=== PATIENT | male | born 1955 | race Caucasian/White ===

== ENCOUNTER 2022-02-07 07:52 | Emergency (ER) | payer OTHER, SELFPAY ==
[2022-02-07 08:06] VITALS: BP 168/102; PULSE 108; RESP 18; TEMP 36.8; O2SAT 97
--- NOTE | 2022-02-07 08:50 | ED.NURSE ---
Left message with daughter to call back.
--- NOTE | 2022-02-07 09:18 | ED_ITS ---
HPI - Psych General Time Seen by Provider: 09:18 Date Seen: 02/07/22 Chief Complaint: Psychiatric Problem/Disorder Stated Complaint: Mental health Time Seen by Provider: 02/07/22 07:54 Source: patient, family and police Mode of arrival: ambulatory Limitations: no limitations History of Present Illness HPI Narrative: 66-year-old gentleman brought in by police in handcuffs as he was at his old family farm in [facility], attempted to start a truck in the barn. Residence of the house called the police, they brought him in for an assessment. Unclear why they brought him here as opposed to by passing [facility]. He tells me he has been drinking, but not for the last 24 hours. Also uses medical marijuana. Made some loose statements that Gus was the reason things are working out form. Absolutely denies to me that he is suicidal homicidal and I do not get that feeling from the police either. Was in [place], I believe for DWI violations, has been out now for the past 2 years and lives in [place]. Currently not employed and estranged from his family. Is not on any psychiatric and medications and not being treated for depression currently. We did call the daughter, she is trying to limit contact with him, but she tells me that he does tell her that he is suicidal in passing, no firm plans, but does continue to drink too much. Context: recent alcohol abuse and recent drug abuse Related Data Home Medications Medication Instructions Recorded Confirmed losartan 25 mg tablet 25 mg PO DAILY 02/07/22 02/07/22 Allergies Allergy/AdvReac Type Severity Reaction Status Date / Time No Known Drug Allergies Allergy Verified 02/07/22 08:06 Review of Systems Status of ROS: Reports: 10 or more systems reviewed and unremarkable except as noted in History and below [facility] Social History Smoking Status: Current some day smoker What tobacco products do you use: cigarettes Do you use any of these nicotine containing products: E-Cigarettes How often do you have a drink containing alcohol: 2-4 times a month How many standard drinks containing alcohol do you have on a typical day: 5 or 6 How often do you have six or more drinks on one occasion: Less than monthly AUDIT-C Alcohol total score: 5 Non-prescribed substance use: marijuana (any form) service: No Exam Narrative: Exam Narrative: Patient is sitting quietly in the room interactive with me his hearing aids are out but he is able to hear me quite well. Pupils are equal round react to light there is no scleral icterus redness TMs are normal no evidence of trauma over his head or neck region his neck is supple full range of motion, mouth opening normal. Thyroid normal midline palpable not enlarged, carotid upstrokes are equal cranial nerves 3-12 are normal, chest is clear heart sounds are normal no clicks murmurs or gallops abdomen is obese. There is no guarding no past splenomegaly moves all extremities independently well with absence of edema swelling there is no tremors noted. Fingers nose testing are normal. A tandem walking is normal for me in the room. Psychiatric he has no tangential thoughts normal speech pattern, no clear psychosis from my conversation with him. Understand that he was in the wrong going to the farm, and trying to get the vehicle, and he could of been charged with trespassing and theft. I will have the nurse talked to the daughter, and we will get some laboratory work which she is in agreement with. Const: Vital Signs, click to edit/add: Vital Signs - 24 hr 02/07/22 08:06 Temperature 98.3 F Pulse Rate [Right Pulse Oximeter] 108 H Respiratory Rate 18 Blood Pressure [Ri ght Upper Arm] 168/102 H Pulse Oximetry 97 Course Course Hospital Course: Patient has been cleared by Mental Health evaluation, they do not think he is holdable given current issue. There is a history of alcohol use with multiple DWI, patient is not interested in counseling or outpatient help here. He is not suicidal nor psychotic. I think it would be reasonable to discharge him home. Given the above, we offered him social work evaluation also but he declined. His laboratory work looks reasonable to this examiner, he is on medical marijuana. Finish up the banana bag and then discharge home. Vital Signs Vital signs: Initial Vital Signs Temperature 98.3 F 02/07/22 08:06 Temperature Source Temporal Artery Scan 02/07/22 08:06 Pulse Rate 108 H 02/07/22 08:06 Respiratory Rate 18 02/07/22 08:06 Blood Pressure 168/102 H 02/07/22 08:06 Blood Pressure Mean 124 02/07/22 08:06 Blood Pressure Position Sitting 02/07/22 08:06 Pulse Oximetry 97 07/26/22 08:06 Oxygen Delivery Method 02/07/22 08:06 Vital Signs Temperature 98.3 F 02/07/22 08:06 Pulse Rate 108 H 02/07/22 08:06 Respiratory Rate 18 02/07/22 08:06 Blood Pressure 168/102 H 02/07/22 08:06 Pulse Oximetry 97 02/07/22 08:06 Temperature 98.3 F 02/07/22 08:06 Pulse Rate 108 H 02/07/22 08:06 Respiratory Rate 18 02/07/22 08:06 Blood Pressure 168/102 H 02/07/22 08:06 Pulse Oximetry 97 02/07/22 08:06 MDM - Psych MDM Narrative Medical decision making narrative: Multiple differential diagnoses were considered for altered mental status. The life-threatening differential diagnosis considered include: Meningitis/encephalitis, bacteremia, subdural, cerebrovascular accident, SAH, and hypertensive encephalopathy. Other differential diagnosis included include medication effect, hypoxia, hypoglycemia, hypercalcemia, hypo or hypernatremia, hypothyroidism, hepatic encephalopathy, carbon monoxide poisoning, UTI, pneumonia, depression, seizure, as well as other etiologies. Differential Diagnosis Differential diagnosis: Likely acute psychosis, chronic schizophrenia, suicidal ideation, bipolar disorder, depression, drug-induced psychotic disorder and acute anxiety Medical Records Attestation: I reviewed the patient's medical records. Lab Data Attestation: I reviewed the patient's lab results. Labs: Lab Results 02/07/22 02/07/22 02/07/22 Range/Units 08:53 09:50 09:58 WBC 14.79 H (4.50-11.00) K/uL RBC 4.83 (4.30-5.90) m/uL Hgb 15.2 (13.5-17.5) gm/dL Hct 43.7 (37.0-53.0) % MCV 91 (80-100) fL MCH 32 (26-34) pg MCHC 35 (32-36) gm/dL RDW Coeff of Nilo 13.4 (11.5-15.5) % Plt Count 288 (140-440) K/uL Neut % (Auto) 81.0 H (42.0-72.0) % Lymph % (Auto) 8.7 L (20-44) % Mcduffie % (Auto) 7.9 (0.0-11.0) % Eos % (Auto) 1.5 (0.0-7.0) % Baso % (Auto) 0.5 (0.0-3.0) % Neut # (Auto) 12.00 H (1.7-7.0) K/uL Lymph # (Auto) 1.30 (0.90-2.90) K/uL Mcduffie # (Auto) 1.20 H (0.00-0.90) K/UL Eos # (Auto) 0.20 (0.00-0.50) K/uL Baso # (Auto) 0.10 (0.00-0.30) K/uL Abs Immat Gran (auto) 0.06 (0.00-0.30) K/uL INR 1.08 (0.91-1.10) APTT 33 (23-33) Seconds Sodium (135-149) mmol/L Potassium (3.6-5.1) mmol/L Chloride (96-114) mmol/L Carbon Dioxide (20-32) mmol/L BUN (7-30) mg/dL Creatinine (0.5-1.5) mg/dL Estimated GFR ml/min Glucose (60-115) mg/dL Calcium (8.4-10.6) mg/dL Magnesium (1.5-2.6) mg/dL Total Bilirubin (0.1-1.5) mg/dL Direct Bilirubin (0.0-0.5) mg/dL AST (12-35) U/L ALT (4-50) U/L Alkaline Phosphatase (40-150) U/L Total Protein (6.0-8.3) g/dL Albumin (3.3-5.0) g/dL Salicylates (1.0-10) mg/dL Urine Opiates Screen Negative (Negative) Ur Oxycodone Screen Negative (Negative) Urine Methadone Screen Negative (Negative) Ur Propoxyphene Screen Negative (Negative) Acetaminophen (10.0-30.0) ug/mL Ur Barbiturates Screen Negative (Negative) U Tricyclic Antidepress Negative (Negative) Ur Phencyclidine Scrn Negative (Negative) Ur Amphetamines Screen Negative (Negative) U Methamphetamines Scrn Negative (Negative) U Benzodiazepines Scrn Negative (Negative) Urine Cocaine Screen Negative (Negative) U Marijuana (THC) Screen POSITIVE A* (Negative) Ur Drug Screen Comment See Note Ethyl Alcohol (0.01-0.03) % 02/07/22 Range/Units 09:58 WBC (4.50-11.00) K/uL RBC (4.30-5.90) m/uL Hgb (13.5-17.5) gm/dL Hct (37.0-53.0) % MCV (80-100) fL MCH (26-34) pg MCHC (32-36) gm/dL RDW Coeff of Nilo (11.5-15.5) % Plt Count (140-440) K/uL Neut % (Auto) (42.0-72.0) % Lymph % (Auto) (20-44) % Mcduffie % (Auto) (0.0-11.0) % Eos % (Auto) (0.0-7.0) % Baso % (Auto) (0.0-3.0) % Neut # (Auto) (1.7-7.0) K/uL Lymph # (Auto) (0.90-2.90) K/uL Mcduffie # (Auto) (0.00-0.90) K/UL Eos # (Auto) (0.00-0.50) K/uL Baso # (Auto) (0.00-0.30) K/uL Abs Immat Gran (auto) (0.00-0.30) K/uL INR (0.91-1.10) APTT (23-33) Seconds Sodium 131 L (135-149) mmol/L Potassium 4.4 (3.6-5.1) mmol/L Chloride 100 (96-114) mmol/L Carbon Dioxide 22 (20-32) mmol/L BUN 6 L (7-30) mg/dL Creatinine 0.5 (0.5-1.5) mg/dL Estimated GFR 112 ml/min Glucose 113 (60-115) mg/dL Calcium 8.9 (8.4-10.6) mg/dL Magnesium 2.0 (1.5-2.6) mg/dL Total Bilirubin 1.4 (0.1-1.5) mg/dL Direct Bilirubin 0.2 (0.0-0.5) mg/dL AST 69 H (12-35) U/L ALT 49 (4-50) U/L Alkaline Phosphatase 81 (40-150) U/L Total Protein 7.6 (6.0-8.3) g/dL Albumin 4.6 (3.3-5.0) g/dL Salicylates < 1.0 L (1.0-10) mg/dL Urine Opiates Screen (Negative) Ur Oxycodone Screen (Negative) Urine Methadone Screen (Negative) Ur Propoxyphene Screen (Negative) Acetaminophen < 10.0 L (10.0-30.0) ug/mL Ur Barbiturates Screen (Negative) U Tricyclic Antidepress (Negative) Ur Phencyclidine Scrn (Negative) Ur Amphetamines Screen (Negative) U Methamphetamines Scrn (Negative) U Benzodiazepines Scrn (Negative) Urine Cocaine Screen (Negative) U Marijuana (THC) Screen (Negative) Ur Drug Screen Comment Ethyl Alcohol < 0.01 L (0.01-0.03) % ECG Data Attestation: I personally reviewed and interpreted this ECG as follows: ECG interpretation date: 02/07/22 ECG interpretation time: 10:56 Prior ECG tracings: not available for review Interpretation: Mild sinus tachycardia with a ventricular rate of 102, no acute ST wave changes Discharge Plan Discharge Clinical Impression: History of alcohol consumption, Poor mental health, 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 Prescriptions: No Action losartan 25 mg tablet 25 mg PO DAILY 0RF Follow Up/Referrals: Provider,Not a Local [Primary Care Provider] - Stand Alone Forms: [facility] Info Instructions
--- NOTE | 2022-02-07 09:25 | ED.NURSE ---
DEC initiated. Faxed facesheet.
--- NOTE | 2022-02-07 10:07 | ED.NURSE ---
Spoke with daughter regarding patient. Daughter states patient has not been doing well for many years. States he has severe depression that has not been treated. Daughter states that when pt is severely depressed he goes back to his childhood and will tend to go the farm where he was raised. Daughter states he has had a drinking problem for years. Makes comments to daughter like, I would be better off . Other family members will not talk to him anymore. States she is the only one who talks to him right now but she is very frustrated with him and is pulling back. Hasn't worked in a year. Lost his girlfriend to cancer a couple years ago. Daughter states she tries to call him often to check on him and he doesnt answer.
[2022-02-07 10:16] LABS: Basophils Percent Auto 0.5 % (0.0-3.0); Eosinophils Percent Auto 1.5 % (0.0-7.0); Hematocrit 43.7 % (37.0-53.0); Hemoglobin* 15.2 gm/dL (13.5-17.5); Immature Granulocytes Abs Auto 0.06 K/uL (0.00-0.30); Lymphocytes Percent Auto 8.7 % (20-44); Mean Corpuscular HGB Conc 35 gm/dL (32-36); Mean Corpuscular Hemoglobin 32 pg (26-34); Mean Corpuscular Volume 91 fL (80-100); Monocytes Percent Auto 7.9 % (0.0-11.0); Platelet Count* 288 K/uL (140-440); RDW Coefficient of Variation % 13.4 % (11.5-15.5); Red Blood Count 4.83 m/uL (4.30-5.90); White Blood Count* 14.79 K/uL (4.50-11.00)
[2022-02-07 10:17] LABS: Amphetamine Screen Urine Negative (Negative); Barbiturate Screen Urine Negative (Negative); Benzodiazepines Screen Urine Negative (Negative); Cocaine Screen Urine Negative (Negative); Methadone Screen Urine Negative (Negative); Methamphetamines Screen Urine Negative (Negative); Opiate Screen Urine Negative (Negative); Oxycodone Screen Urine Negative (Negative); Phencyclidine Screen Urine Negative (Negative); Tricyclic Antidepressant Urine Negative (Negative)
[2022-02-07 10:23] LABS: Chloride* 100 mmol/L (96-114); Sodium* 131 mmol/L (135-149)
[2022-02-07 10:24] LABS: Albumin* 4.6 g/dL (3.3-5.0); Potassium* 4.4 mmol/L (3.6-5.1)
[2022-02-07 10:26] LABS: Creatinine* 0.5 mg/dL (0.5-1.5); Estimated Glomerular Filt Rate 112 ml/min
[2022-02-07 10:27] LABS: Alanine Aminotransferase* 49 U/L (4-50); Alkaline Phosphatase* 81 U/L (40-150); Aspartate Amino Transferase* 69 U/L (12-35); Bilirubin Direct* 0.2 mg/dL (0.0-0.5); Bilirubin Total* 1.4 mg/dL (0.1-1.5); Blood Urea Nitrogen* 6 mg/dL (7-30); Calcium* 8.9 mg/dL (8.4-10.6); Carbon Dioxide* 22 mmol/L (20-32); Glucose* 113 mg/dL (60-115); Total Protein* 7.6 g/dL (6.0-8.3)
[2022-02-07 10:29] LABS: Acetaminophen* < 10.0 ug/mL (10.0-30.0); Ethanol* < 0.01 % (0.01-0.03); Salicylate* < 1.0 mg/dL (1.0-10)
[2022-02-07 10:31] LABS: INR 1.08 (0.91-1.10); Prothrombin Time 14.4 Seconds
[2022-02-07 10:32] LABS: Partial Thromboplastin Time* 33 Seconds (23-33)
[2022-02-07 10:46] LABS: Cannabinoid Screen Urine POSITIVE (Negative)
[2022-02-07 11:06] LABS: Slide Review Reflex No
[2022-02-07 13:10] VITALS: BP 132/83; PULSE 96; O2SAT 94
== END 2022-02-07 13:25 | disposition home or self-care (01) ==
PROVIDERS: Emergency Provider Family Medicine
DX: F99 Mental disorder, not otherwise specified (principal); F10.10 Alcohol abuse, uncomplicated; Z01.89 Encounter for other specified special examinations
CPT/HCPCS: 36415; 80048; 80076; 80143; 80179; 80306; 82077; 83735; 85025; 85610; 85730; 93005; 99284; 99285; J3411; J7030